=== PATIENT | male | born 1995 | race African-American/Black ===

== ENCOUNTER 2016-11-30 02:05 | Inpatient (IN) | payer MEDICAID, OTHER ==
[~2016-11-30] VITALS: Ht 190.5 cm; Wt 73.9 kg
[2016-11-30 04:30] VITALS: BP 136/89; PULSE 103; RESP 18; TEMP 97.4; O2SAT 95
[2016-11-30] MEDS ORDERED: LORazepam 1 MG TAB PO PRN (05:15)
[2016-11-30] MEDS ORDERED: ACETAMINOPHEN 325 MG TAB PO PRN (05:15)
[2016-11-30] MEDS ORDERED: MAGNESIUM HYDROXIDE SUSP 30 ML CUP PO PRN (05:15)
[2016-11-30] MEDS ORDERED: ALUMINUM/MAGNESIUM/SIMETH 30 ML CUP PO PRN (05:15)
[2016-11-30] MEDS ORDERED: LORazepam 2 MG/ML VIAL IM PRN (05:15)
[2016-11-30] MEDS: NICOTINE 21 MG/24 HR PATCH T-DERMAL SCH (09:00)
[2016-11-30] MEDS: REMOVE OLD NICOTINE PATCH T-DERMAL SCH (11:51)
[2016-11-30] MEDS ORDERED: diphenhydrAMINE HCL 50 MG/ML VIAL IM PRN (12:30)
[2016-11-30] MEDS ORDERED: diphenhydrAMINE HCL 50 MG CAP PO PRN (12:30)
--- NOTE | 2016-11-30 13:05 | MH ---
cc: JOSE RAMON PURDY MD DATE OF ADMISSION 11/30/2016 ADMISSION DIAGNOSES 1. Other psychotic disorder Rule out primary psychotic disorder such as schizophrenia, rule out mood disorder with psychotic features, rule out substance-induced psychotic disorder. 2. Rule out cannabis abuse. LEGAL STATUS The patient is capacitated to sign into the hospital voluntarily and consent for medications. HISTORY OF PRESENT ILLNESS Mr. Andrade is a 21-year-old -[place] male sent in transfer from [facility] under a Huerta ACT. Reviewing the documentation from that facility, the patient apparently was Huerta acted the day before, but eloped and had to be retrieved by police. He was noted to be delusional in the outside hospital ED. He was transferred to [facility] inpatient psychiatry for further management. Reviewing our electronic medical record, it appears this is the patient's first visit to [facility]. The patient seen and examined with nurse and counselor. On my examination today, the patient says that he has been having his current psychiatric symptoms for about a month. He says "the truth might sound crazy. Somebody has been poisoning me. I was eating it for like a week without knowing it, cereal and milk. It was in the milk. I lost like 100 pounds in a week. I went into the hospital to tell them I had been poisoned. They put me in this room. The doctor came in and said whatever you ate, you . Something told me, you gotta get out of there. The police chased me and I slept in a shed last night. They are trying to do something to me to get my insurance money." The patient does not describe any mood symptoms per se, nor is there any evidence of affective disorder. There is no other evident delusional material, nor does the patient describe any other hallucinatory material, although he does appear little bit internally preoccupied. The remainder of the psychiatric ROS is negative. The patient does note that his main stressor is the upcoming of his first child, a daughter. PAST PSYCHIATRIC HISTORY The patient reports a history of bipolar disorder. He says that he saw a psychiatrist once at around 12 years old for fighting to avoid a juvenile justice sentence. He denies any history of psychiatric admissions or suicide attempts. FAMILY HISTORY The patient endorses a family history of bipolar disorder in "everybody." No other family psychiatric history. CHEMICAL DEPENDENCY HISTORY The patient reports that he smokes cannabis a couple of times a week. He denies any other substance use. His urine toxicology at an outside hospital was positive for cannabinoids. SOCIAL HISTORY The patient denies a history of physical, verbal or sexual abuse. He is single but is going to have a daughter soon with a woman that he was seeing. He has no other children. He works at [employer]. He had been living with his mother, but believes that she is trying to get his insurance money and so he has been without stable housing lately. He did not graduate high school. He denies any or legal history. He reports that he is a Hol[employer], but denies any need for a special accommodation such as a Halal diet. PAST MEDICAL HISTORY The patient denies any medical issues. ALLERGIES No known allergies. REVIEW OF SYSTEMS No reported headache, vision or hearing changes, chest pain, shortness of breath, bowel or bladder issues. No other physical complaints. PHYSICAL EXAMINATION A physical examination was completed at the outside hospital and the patient was medically cleared. On my examination today, the patient appears to be well-nourished and well-developed. He is in no acute distress. No abnormal motor movements noted. LABS AND VITAL SIGNS Reviewed. The patient's temperature is 97.4, pulse is 103 per minute, respiratory rate is 18, blood pressure is 136/89. Pulse oximetry is 95% on room air. LABORATORY CMP is remarkable for mild hyperglycemia in a nonfasting sample at 128 and elevated creatinine of 1.48. The patient's total bilirubin is also elevated. The patient's CBC is unremarkable. Toxicology as above, positive for cannabinoids. Alcohol level undetectable. MENTAL STATUS EXAM The patient is in hospital gown. He is fairly well-groomed. He is awake, alert and oriented x3. No abnormal motor movements noted. Speech is within normal limits for rate, tone and volume and is not pressured. Language and fund of knowledge seem average for age. Mood is fair and affect is somewhat blunted. Thought process linear within delusional system. No loosening of associations. Paranoid delusions are present. The patient describes some auditory phenomena of people telling him to get out of the outside hospital emergency department. No reported AVH presently, but the patient does appear a little internally preoccupied. He denies any suicidal or homicidal ideation. Insight and judgment are presently fair. ASSESSMENT/PLAN This is a 21-year-old half -Belizean male with psychiatric history as detailed above who presents under a Huerta Act in transfer from outside hospital. The patient seems to have prominent paranoid delusions and possibly some audiovisual hallucinations. There does not seem to be much of affective component and so, despite his family history of bipolar disorder, I am more inclined to believe that he has a primary psychotic disorder, if his symptoms are not chiefly substance-induced from his cannabis use. I did endeavor to obtain collateral with the patient's permission from his brother Sebastien at [phone], but his number was not accepting calls and no one answered. The patient requires psychiatric hospitalization at this time for safety, observation and stabilization. Admit inpatient. Voluntary status. Check a hemoglobin A1c, lipid panel and CMP in the morning. Counselor to endeavor to obtain additional collateral to see if this is the patient's first break psychotic episode. If so, we may need to undertake a first break psychotic disorder workup if this is not obviously substance-induced within a day or two. In the meantime, I will start the patient on low-dose Risperdal for the management of psychotic symptoms. I will provide him with Ativan as needed for anxiety and Benadryl as needed for EPS and sleep. We will take vitals every shift. Counselor to see and perform evaluation. Disposition planning. Estimated length of stay: 7-9 days. Jose Ramon CAMPBELL /12:21 PM /12:52 PM KRISTIN
[2016-11-30 21:00] VITALS: BP 143/93; PULSE 100; RESP 18; TEMP 97.4; O2SAT 98
[2016-11-30] MEDS: risperiDONE 0.5 MG TAB PO SCH (21:02)
[2016-12-01 05:59] VITALS: BP 121/60; PULSE 61; RESP 16; TEMP 97.6; O2SAT 97
[2016-12-01 07:21] LABS: ALKALINE PHOSPHATASE 87 U/L (45-117); ALT (GPT) 16 U/L (9-52); ANION GAP 9 MEQ/L (5-15); AST (GOT) 13 U/L (15-39); BLOOD UREA NITROGEN 11 MG/DL (7-18); CHLORIDE 105 MEQ/L (98-107); GLOMERULAR FILTRATION RATE 101 ML/MIN (>89); HDL CHOLESTEROL 73.1 MG/DL (40.0-60.0); LDL CHOLESTEROL 26 MG/DL (0-99); POTASSIUM 3.4 MEQ/L (3.5-5.1); SODIUM (NA) 141 MEQ/L (136-145); TOTAL BILIRUBIN ADULT 1.2 MG/DL (0.2-1.0)
[2016-12-01] MEDS: REMOVE OLD NICOTINE PATCH T-DERMAL SCH (08:46)
[2016-12-01] MEDS: risperiDONE 0.5 MG TAB PO SCH ×2 (08:46→22:10)
[2016-12-01] MEDS: NICOTINE 21 MG/24 HR PATCH T-DERMAL SCH (08:46)
--- NOTE | 2016-12-01 10:41 | HHI.PYPN ---
Subjective Remarks Patient seen and examined with counselor. Chart reviewed. Case discussed with nursing staff who reports patient is medication compliant. Counselor obtained collateral from patient's grandmother to suggest that this is not the first episode of patient's mental illness. Consequently I will not treat this as a first break psychosis. Patient is in better spirits today. He says that he feels like his mood is improved since starting the Risperdal. He does complain of a little bit of tiredness with the current dose of medications and I discussed the possibility of switching to a different agent with less prominent sedation but the patient would like to continue with the current medication as ordered for now to see if sedation lessons. He does remain concerned that he is being poisoned outside of the hospital but feels safe in the hospital and is eating 100% of meals here. He does request additional ensure shakes, and I have ordered these for him. No other side effects from medications. Review of Systems Other No somatic complaints today besides some fatigue Objective Alert: Yes [place]: Person, Place, Date Mood: Calm Affect: Other (fairly full and reactive) Memory Intact: Comment (intact on clinical exam) Hallucinations: Other (no AVH) Delusions: Yes Delusion Type: Paranoid Suicidal: Ideation (no SI) Homicidal: Ideation (no HI) Insight/Judgement Fair Remarks No motoric abnormalities noted. Thought process linear within delusional system. Speech within normal limits for rate, tone and volume. Labs Test 12/01/16 06:13 Sodium Level 141 MEQ/L Potassium Level 3.4 MEQ/L Chloride Level 105 MEQ/L Carbon Dioxide Level 27.0 MEQ/L Anion Gap 9 MEQ/L Blood Urea Nitrogen 11 MG/DL Creatinine 1.12 MG/DL Estimat Glomerular Filtration 101 ML/MIN Rate Random Glucose 83 MG/DL Calcium Level 8.3 MG/DL Total Bilirubin 1.2 MG/DL Aspartate Amino Transf 13 U/L (AST/SGOT) Alanine Aminotransferase 16 U/L (ALT/SGPT) Alkaline Phosphatase 87 U/L Total Protein 6.9 GM/DL Albumin 3.8 GM/DL Triglycerides Level 59 MG/DL Cholesterol Level 111 MG/DL LDL Cholesterol 26 MG/DL HDL Cholesterol 73.1 MG/DL Cholesterol/HDL Ratio 1.51 RATIO Labs reviewed. Hypokalemia noted. Hyperbilirubinemia improved. Vitals/IOs Vital Signs Date Time Temp Pulse Resp B/P Pulse Ox O2 Delivery O2 Flow Rate FiO2 12/01/16 05:59 97.6 61 16 121/60 97 Assessment & Plan Problem List: (1) Other psychotic disorder not due to a substance or known physiological condition ICD Code: F28 (2) Cannabis abuse ICD Code: F12.10 Assessment & Plan Continue Risperdal as ordered for now to see if patient habituates to sedation. Continue other medications and care as ordered. Justification for Cont. Inpt. Impairments in reality testing. Risk for decompensation. Discharge Planning Pending psychiatric stabilization Request HC Surrog/Guard Advoc?: No Jose Ramon Gil MD Dec 01, 2016 10:41
[2016-12-01 15:43] LABS: HEMOGLOBIN A1b 0.6 %; HEMOGLOBIN Ao 87.7 %; HEMOGLOBIN F 1.2 %; HEMOGLOBIN LA1C 1.5 %; HEMOGLOBIN P3 2.9 %
[2016-12-01 20:06] VITALS: BP 128/65; PULSE 75; RESP 18; TEMP 97.7; O2SAT 100
[2016-12-02 05:54] VITALS: BP 139/76; PULSE 72; RESP 16; TEMP 98.1; O2SAT 97
[2016-12-02] MEDS: risperiDONE 0.5 MG TAB PO SCH (10:00)
--- NOTE | 2016-12-02 11:20 | HHI.PYPN ---
Subjective Remarks Patient seen and examined with counselor. Chart reviewed. Case discussed with nursing staff. On my examination today, the patient appears to be in good spirits. He does not voice any ongoing concerns about being poisoned and there is only some subtle residual paranoia. He feels like his medications are working well and denies side effects from medications. He is agreeable to a modest titration of his Risperdal. Review of Systems Other No somatic complaints today Objective Alert: Yes [place]: Person, Place, Date Mood: Calm Affect: Euthymic Memory Intact: Comment (intact) Hallucinations: Other (none) Delusions: Yes Delusion Type: Paranoid (significantly attenuated) Suicidal: Ideation (no SI) Homicidal: Ideation (no HI) Insight/Judgement Fair Remarks Speech within normal limits for rate, tone and volume. Thought process linear. No motoric abnormalities noted. Labs Labs reviewed. No new labs. Vitals/IOs Vital Signs Date Time Temp Pulse Resp B/P Pulse Ox O2 Delivery O2 Flow Rate FiO2 12/02/16 05:54 98.1 72 16 139/76 97 Assessment & Plan Problem List: (1) Other psychotic disorder not due to a substance or known physiological condition ICD Code: F28 (2) Cannabis abuse ICD Code: F12.10 Assessment & Plan Titrate Risperdal. Replete potassium and recheck a K and Mg in the morning. Continue other medications and care as ordered. Justification for Cont. Inpt. Monitor overnight. Discharge Planning Anticipate discharge tomorrow Request HC Surrog/Guard Advoc?: No Jose Ramon Gil MD Dec 02, 2016 11:20
[2016-12-02] MEDS ORDERED: POTASSIUM CHLORIDE 10 MEQ CONTROLLED RELEASE TAB PO ONE (15:00)
[2016-12-02 18:50] VITALS: BP 134/66; PULSE 76; RESP 18; TEMP 98.7; O2SAT 99
[2016-12-02] MEDS ORDERED: risperiDONE 1 MG TAB PO SCH (21:00)
[2016-12-03 05:42] VITALS: BP 117/68; PULSE 66; RESP 16; TEMP 97.5; O2SAT 97
[2016-12-03 07:59] LABS: MAGNESIUM 2.1 MG/DL (1.5-2.5); POTASSIUM 3.9 MEQ/L (3.5-5.1)
[2016-12-03] MEDS ORDERED: risperiDONE 0.5 MG TAB PO SCH (09:00)
[2016-12-03] MEDS ORDERED: RISP0.5T20 PO (11:48)
--- NOTE | 2016-12-03 11:48 | HHI.DS ---
Psychiatry Discharge Summary Inpatient Psychiatric care?: Yes Advance Directive: No Reason Not Provided: DENIES NEED Mental Health AdvanceDirective: No Health Care Proxy: No Admission Admission Date Nov 30, 2016 at 04:50 Admission Diagnosis: (1) Other psychotic disorder not due to a substance or known physiological condition ICD Code: F28 (2) Cannabis abuse ICD Code: F12.10 Brief History Mr. Andrade is a 21-year-old -[place] male sent in transfer from [facility] under a Huerta ACT. Reviewing the documentation from that facility, the patient apparently was Huerta acted the day before, but eloped and had to be retrieved by police. He was noted to be delusional in the outside hospital ED. He was transferred to [facility] inpatient psychiatry for further management. Reviewing our electronic medical record, it appears this is the patient's first visit to [facility]. The patient seen and examined with nurse and counselor. On my examination today, the patient says that he has been having his current psychiatric symptoms for about a month. He says "the truth might sound crazy. Somebody has been poisoning me. I was eating it for like a week without knowing it, cereal and milk. It was in the milk. I lost like 100 pounds in a week. I went into the hospital to tell them I had been poisoned. They put me in this room. The doctor came in and said whatever you ate, you . Something told me, you gotta get out of there. The police chased me and I slept in a shed last night. They are trying to do something to me to get my insurance money." The patient does not describe any mood symptoms per se, nor is there any evidence of affective disorder. There is no other evident delusional material, nor does the patient describe any other hallucinatory material, although he does appear little bit internally preoccupied. The remainder of the psychiatric ROS is negative. The patient does note that his main stressor is the upcoming of his first child, a daughter. Tobacco Use In Past 30 Days: No Tobacco Past 30 Days Alcohol Use: Never Hospital Course Patient was admitted to a locked, inpatient psychiatric unit. Appropriate precautions were in place throughout patient's hospital stay. Patient was seen and examined daily on the unit by psychiatry and visited by counselor. Medications were adjusted. Patient tolerated medications well without side effects. Patient had improvement in his presenting psychiatric symptomatology during the course of his hospital stay. He had significant attenuation in his delusions of being poisoned. He ate well on the unit. There was no evidence of any suicidality or homicidality on the inpatient unit. Patient remained in good behavioral control and was medication compliant. On the day of discharge: Case discussed with nursing staff. No behavioral issues to report. On my examination today, the patient is in good spirits. He requests discharge from the inpatient psychiatric unit. He denies any SI, HI or AVH. He says that he has not presently concerned about being poisoned outside of the hospital but if he were to have these concerns he would just get his own food. Denies side effects from medications. Declines long-acting injectable antipsychotic. No physical complaints today. Weighing the acute, chronic, and protective factors and based on the available evidence, I student life coordinator to a reasonable degree of medical certainty that the patient is at low imminent risk of harm to self or others from a mental illness and his level of function is adequate for outpatient care. The patient will be discharged today in stable condition with psychiatric follow-up as arranged by counselor. Patient is also to follow-up with primary care. I counseled the patient to return to the psychiatric emergency room for any concerning psychiatric symptoms as part of the general safety plan. Results Blood Pressure 117 / 68 Vital Signs Date Time Temp Pulse Resp B/P Pulse Ox O2 Delivery O2 Flow Rate FiO2 12/03/16 05:42 97.5 66 16 117/68 97 Laboratory Tests Test 12/01/16 06:13 Potassium Level 3.4 MEQ/L (3.5-5.1) Calcium Level 8.3 MG/DL (8.5-10.1) Total Bilirubin 1.2 MG/DL (0.2-1.0) Aspartate Amino Transf 13 U/L (15-39) (AST/SGOT) Cholesterol Level 111 MG/DL (120-200) HDL Cholesterol 73.1 MG/DL (40.0-60.0) Laboratory Results Test 12/01/16 06:13 Hemoglobin A1c 4.8 % (4.3-6.0) Triglycerides Level 59 MG/DL (42-150) Cholesterol Level 111 MG/DL (120-200) LDL Cholesterol 26 MG/DL (0-99) HDL Cholesterol 73.1 MG/DL (40.0-60.0) Summary of Procedures None done Imaging None done Pending results at discharge: No Medications # of Antipsychotic meds at D/C: 1 Approp Antipsych med options 1 - Minimum of three failed multiple trials of monotherapy. 2 - Documented plan to taper to monotherapy due to previous use of multiple meds OR cross-taper in progress at D/C. 3 - Documentation of augmentation of Clozapine. 4 - Justification other than those listed in allowable values 1-3, document here : Discharge Discharge Date: Dec 03, 2016 Discharge Diagnosis: (1) Other psychotic disorder not due to a substance or known physiological condition Diagnosis: Principal (improved versus admission) ICD Code: F28 (2) Cannabis abuse Diagnosis: Secondary (counseled to quit) ICD Code: F12.10 GAF on discharge is 55 Mental Status Exam at Disch Patient is casually dressed. He is well groomed. He is awake and alert and oriented 3. No abnormal motor movements noted. Speech is within normal limits for rate, tone and volume. Language and fund of knowledge seemed average for age. Mood is fair and affect is full and reactive. Thought process linear. No loosening of associations. No alexandra delusional material. Denies audiovisual hallucinations. Denies suicidal or homicidal ideation. Insight and judgment are fair. Pt Condition on Discharge: Stable Discharge Disposition: Discharge Home Discharge Instructions Diet Instructions: As Tolerated, No Restrictions Activities you can perform: Weight Bearing as Felecia Scheduled Appointment: [facility] Appointment Date: Dec 07, 2016 Appointment Time: 11:45am New Medications: Risperidone (Risperdal) 0.5 Mg Tab 0.5 MG PO DIRECTED 0.5mg PO qAM and 1mg PO qHS. Mental Health Days 15 Ref 1 TAB Discharge Time <= 30 minutes Discharge/Advance Care Plan Health Problems: (1) Other psychotic disorder not due to a substance or known physiological condition (2) Cannabis abuse Goals to promote your health * To prevent worsening of your condition and complications * To maintain your health at the optimal level Directions to meet your goals Take your medications as prescribed Follow your dietary instruction Follow activity as directed Keep your appointments as scheduled Take your immunizations and boosters as scheduled If your symptoms worsen call your PCP, if no PCP go to Urgent Care Center or Emergency Room For 06/06 questions related to your inpatient stay or results of tests pending at discharge, please contact Dr. Jose Ramon Gil at Smoking is Dangerous to Your Health. Avoid second hand smoking Jose Ramon Gil MD Dec 03, 2016 11:48
== END 2016-12-03 14:55 | disposition home or self-care (01) | DRG 885 ==
LOC: H270 02:10 → UNDOADMIN 02:10 → H270 04:50
PROVIDERS: ADMIT Psychiatry & Neurology Psychiatry; ATTEND Psychiatry & Neurology Psychiatry
DX: F28 Other psychotic disorder not due to a substance or known physiological condition (principal); F12.10 Cannabis abuse, uncomplicated
CPT/HCPCS: 80053; 80061; 83036; 83735; 84132